=== PATIENT | female | born 1980 | race Caucasian/White ===

== ENCOUNTER → 2016-10-03 | Outpatient (CLI) | payer OTHER ==
[2016-10-03 12:30] LABS: Glucose 3 Hour, Gest 110 mg/dL
== END | disposition home or self-care (01) ==
LOC: LABWHC1 07:37
PROVIDERS: ATTEND Obstetrics & Gynecology
DX: O24.419 Gestational diabetes mellitus in pregnancy, unspecified control (principal); Z3A.00 Weeks of gestation of pregnancy not specified
CPT/HCPCS: 36415; 82951; 82952

== ENCOUNTER 2016-10-26 14:51 | Inpatient (IN) | payer OTHER ==
[2016-10-26 16:18] LABS: CHCM 33.8; HGB 11.9 gm/dL (11.4-16.0)
[2016-10-26 16:28] LABS: ALT 34 U/L (9-52); AST 18 U/L (14-36); Blood Urea Nitrogen 7 mg/dL (7-17); Non-African American GFR(MDRD) >60 (>60 ml/min/1.73 sqM); Uric Acid 3.5 mg/dL (3.7-7.4)
[2016-10-26 16:41] LABS: Basophils % (A) 0 %; CH 29.9; Eosinophils # (A) 0.1 k/uL (0-0.7); Eosinophils % (A) 1 %; HCT 35.8 % (34.0-46.0); HDW 3.31; Luc % (Auto) 4; Lymphocytes # (A) 1.7 k/uL (1.0-4.8); Lymphocytes % (A) 23 %; MCH 29.7 pg (25.0-35.0); MCHC 33.2 g/dL (31.0-37.0); MCV 89.2 fL (80.0-100.0); Mean Platelet Volume 6.9; Monocytes # (A) 0.5 k/uL (0-1.0); Monocytes % (A) 7 %; Neutrophils # (A) 4.8 k/uL (1.3-7.7); Neutrophils % (A) 65 %; RBC 4.01 m/uL (3.80-5.40); RDW 14.1 % (11.5-15.5); WBC 7.4 k/uL (3.8-10.6); WBC (Perox) 7.59
[2016-10-26] MEDS: LACTATED RINGERS 1,000 ML IV SCH ×2 (16:54→18:13)
--- NOTE | 2016-10-26 16:57 | US ---
EXAMINATION TYPE: US OB limited DATE OF EXAM: 10/26/2016 4:43 PM COMPARISON: 05/03/2016 CLINICAL HISTORY: 35-year-old female with twin gestation at 31 weeks. Contractions. Check position an d cervix EXAM PERFORMED: Transabdominal (TA) FINDINGS: GESTATIONAL AGE / DATING Physician Established: (31 weeks/2 days) EDC: 12/26/2016 No growth performed on today?s study per ordering physician SURVEY CERVICAL LENGTH (transabdominal: norm > 3.0cm): 2.7 cm Transvaginal not performed per RN on L&D, and patient also did not want TV at this time PRESENTATION: Both Baby A and Baby B have Vertex presentation HEART RATE: Baby A- 151 bpm Baby B- 145 bpm RHYTHM: Normal TECHNOLOGIST NOTES: Viable Twin gestation both with Vertex presentation. Shortened cervix transabdo minally, with transvaginal exam not performed per RN and patient. Results given to L&D at time of exam. IMPRESSION: 1. Live twin gestations with established gestational age of 31 weeks 2 days. Cephalic presentation fo r both. 2. Slightly shortened cervix at 2.7 cm by transabdominal scanning.
[2016-10-26] MEDS ORDERED: BETAMET ACET-BETAMETH SOD PHOS 6 MG/ML VIAL IM SCH (18:00)
[2016-10-26] MEDS ORDERED: MAGNESIUM SULFATE-WATER PMX 4 GM in WATER FOR INJECTION 50 50ML.BAG IVPB ONE (18:34)
[2016-10-26] MEDS: MAGNESIUM SULFATE-WATER PMX 20 GM in WATER FOR INJECTION 1 500ML.BAG IV SCH (19:49)
[2016-10-26 20:28] VITALS: BMI 31.8
--- NOTE | 2016-10-26 21:45 | P.HPOB ---
History of Present Illness H&P Date: 10/26/16 Chief Complaint: Intrauterine with twins: labor This 35-year-old female G3 for P3 arrived to labor and delivery complaining of worsening pain and pressure. She has had several episodes of labor this and approximately 4 weeks ago was transferred to a high-risk center for evaluation due to cervical dilation. At that time she was monitored placed on magnesium sulfate and they were able to stop the contractions. She did receive 2 doses of betamethasone at that time to help with the baby's lung maturity's in the event that she did deliver early. Apparently 2 weeks ago she was dilated to 2 cm she was checked, then on Thursday Dr. Castro did an exam and she was dilated to 4 cm. At that time she was sent to labor and delivery for monitoring, no contractions were noted during her time in labor and delivery and therefore she was discharged home. She arrives back today complaining of contractions and worsening discomfort. Initially we did do a fibronectin was negative. On presentation she was still dilated to 4 cm and 60% effaced and -3 station. After 2 hours of monitoring I did recheck her and she was dilated to 4-1/2 cm and 70% effaced and -3 station. The main question regarding her care was based around where her delivery would take place. Initially she was supposed to be transferred to [facility] should she be stable for transfer. However with her michelle every 2-4 minutes and making cervical change I do not feel she is stable for transfer and will need to be admitted here. Discussion was held with the patient on options including trial of mag sulfate and dose of steroids to try and buy at least a little more time potentially for her second round of steroids to be and possibly transfer her should we be able to get the contractions. Area In discussing with she and her the decision had been made by the other doctors including Dr. Castro and Cleopatra that even if both babies were vertex she would have a primary section for the twins. This was all discussed with her in detail she is aware that I do not feel she is stable for transfer she is also aware that should she deliver the babies will be transferred to higher acuity center where they can be better taken care of. Questions are ANSWERED for she and her . In reviewing her records it is noted that she has a history of preeclampsia with prior as well. She is been coordinating care with Dr. Rodríguez at [facility] and has been followed very closely. Her pertinent labs did include O+ blood type, Rh antibody was negative. Rubella was immune, hepatitis B surface antigen and RPR were both negative. She did fail her 1 hour but did pass her 3 hour Glucola screen. 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 Patient states that she had a head contusion and 2 bulging disk in her neck diagnosised March 01, 2016. History of panic attacks History of Any Multi-Drug Resistant Organisms: None Reported Past Surgical History: No Surgical Hx Reported Additional Past Surgical History / Comment(s): [place] teeth removed in 2002 Past Anesthesia/Blood Transfusion Reactions: No Reported Reaction Additional Past Anesthesia/Blood Transfusion Reaction / Comment(s): "Hard to wake up" Past Psychological History: Anxiety Smoking Status: Former smoker Past Alcohol Use History: None Reported Past Drug Use History: Marijuana Additional Drug Use History / Comment(s): Patient states that she quit smoking Marijuana in February. - Past Family History Mother Family Medical History: Hypertension Additional Family Medical History / Comment(s): Cervical and Ovarian Cancer, Alcoholism Father Additional Family Medical History / Comment(s): Alcoholism Daughter(s) Additional Family Medical History / Comment(s): Patient has three daughter, Patient states her seven year old is allergic to dairy products. Medications and Allergies Home Medications Medication Instructions Recorded Confirmed Type Albuterol Inhaler [Ventolin Hfa 1 - 2 puff INHALATION RT-Q6H PRN 05/02/16 History Inhaler] Beclomethasone Dipropionate [Qvar 1 puff INHALATION RT-BID PRN 05/02/16 History 80 mcg] Flunisolide [Aerospan] 1 puff PO BID 10/26/16 10/26/16 History Allergies Allergy/AdvReac Type Severity Reaction Status Date / Time Penicillins Allergy Anaphylaxis Verified 10/26/16 15:07 Exam Osteopathic Statement: *. No significant issues noted on an osteopathic structural exam other than those noted in the History and Physical/Consult. - Vital Signs Vital signs: Intake and Output 10/26/16 10/26/16 10/26/16 06:59 14:59 22:59 Intake Total 150 Output Total 425 Balance -275 Intake: IV 150 Magnesium Sulfate-Water 150 Pmx 4 gm In Water For Injection 50 50ml.bag @ 150 mls/hr IVPB ONCE ONE Rx#:[id number] Output: Urine 425 Other: Weight 81.647 kg Patient Weight 10/27/16 06:59 Weight 81.647 kg - OBG Physical Exam Breast: both: normal (no masses) Abdomen: bowel sounds normal, no diffuse tenderness, no bruit present, no guarding noted, no hepatomegaly, no splenomegaly, no mass Vulva: both: normal Vagina: normal moisture, no discharge Cervix: no lesion, no discharge Uterus: normal size, normal contour Adnexa: both: normal Anus/Rectum: normal perianal skin, no rectal mass, no hemorrhoids, heme negative Results Result Diagrams: 10/26/16 16:02 10/26/16 16:02 Abnormal Lab Results - Last 24 Hours (Table) 10/26/16 Range/Units 16:02 Creatinine 0.49 L (0.52-1.04) mg/dL Uric Acid 3.5 L (3.7-7.4) mg/dL
[2016-10-26] MEDS: BUTORPHANOL 1 MG/ML 1 ML VIAL IV PRN (22:27)
[2016-10-27] MEDS ORDERED: BUTORPHANOL 1 MG/ML 1 ML VIAL IV PRN (00:38)
[2016-10-27 01:22] LABS: Basophils % (A) 0 %; CH 30.2; CHCM 33.8; Eosinophils % (A) 0 %; HDW 3.26; HGB 12.2 gm/dL (11.4-16.0); Luc % (Auto) 1; Lymphocytes % (A) 10 %; MCH 28.9 pg (25.0-35.0); MCHC 32.1 g/dL (31.0-37.0); Mean Platelet Volume 8.4; Monocytes # (A) 0.2 k/uL (0-1.0); Monocytes % (A) 2 %; Neutrophils # (A) 8.8 k/uL (1.3-7.7); Neutrophils % (A) 86 %; RBC 4.22 m/uL (3.80-5.40); RDW 14.2 % (11.5-15.5); WBC 10.1 k/uL (3.8-10.6); WBC (Perox) 10.61
[2016-10-27 01:30] LABS: ALT 28 U/L (9-52); AST 24 U/L (14-36); Alkaline Phosphatase 141 U/L (38-126); Anion Gap 10 mmol/L; Blood Urea Nitrogen 8 mg/dL (7-17); Calcium 7.6 mg/dL (8.4-10.2); Carbon Dioxide 19 mmol/L (22-30); Chloride 107 mmol/L (98-107); Glucose 129 mg/dL (74-99); Non-African American GFR(MDRD) >60 (>60 ml/min/1.73 sqM); Phosphorous 4.3 mg/dL (2.5-4.5); Potassium 4.6 mmol/L (3.5-5.1); Sodium 136 mmol/L (137-145); Total Protein 6.5 g/dL (6.3-8.2)
[2016-10-27] MEDS: LACTATED RINGERS 1,000 ML IV SCH (02:09)
[2016-10-27] MEDS: BUTORPHANOL 1 MG/ML 1 ML VIAL IV PRN (04:05)
[2016-10-27] MEDS: MAGNESIUM SULFATE-WATER PMX 20 GM in WATER FOR INJECTION 1 500ML.BAG IV SCH (05:54)
[2016-10-27 07:23] LABS: Calcium 7.1 mg/dL (8.4-10.2); Phosphorous 4.5 mg/dL (2.5-4.5); Potassium 4.8 mmol/L (3.5-5.1)
[2016-10-27 07:39] LABS: Magnesium 4.7 mg/dL (1.6-2.3)
--- NOTE | 2016-10-27 09:18 | P.PN ---
Progress Note - Text The patient was seen and examined this morning. She states her contractions have decreased considerably from yesterday. She still has an occasional contraction and not regular. She admits to good movement. She was admitted and placed on magnesium sulfate toco lysis along with several doses of Stadol through the night to help with pain control. Her contractions were initially every 2-4 minutes but now are approximately every 10 minutes. She was initially found to be 4 cm on arrival and currently is 5 cm 60% and -2 to - 3 station and ballotable. The water is intact. heart tones on both babies are reactive. Impression is twin gestation with mono-di twins at 31-2/7 weeks. Plan is to arrange for transfer to [facility] in [place] in the care of maternal medicine where she has been following throughout this . I did speak to a physician at [facility] and they have accepted transfer in the care of Dr. Bingham. She will be transferred by EMS on magnesium sulfate at 2 g per hour. All records will be sent with her. A bedside ultrasound was performed on admission and she was found to be vertex/ vertex.
--- NOTE | 2016-10-27 09:23 | P.DS ---
Providers Date of admission: 10/26/16 18:48 Expected date of discharge: 10/27/16 Attending physician: Sejal Venegas Primary care physician: Stated None - Discharge Diagnosis(es) (1) labor in third trimester without delivery Current Visit: Yes Status: Acute Hospital Course: This is a 35-year-old female 4 para 3 at 31-2/7 weeks gestation with twins. She was admitted with contractions on 10/26/2016. She was given Celestone and magnesium sulfate. She also received several doses of Stadol through the night. Her contractions have spaced out this morning and are irregular. Her cervix initially was 4 cm on admission and did make some cervical change to 5 cm, however her cervix has been stable for the last 4 hours. She has been followed by maternal- medicine at [facility] with multiple ultrasounds and she was admitted for steroids at approximate 28 weeks. At that time she did have magnesium sulfate tocolysis and Indocin. A bedside ultrasound was performed on admission that showed both babies are vertex presentation. She is currently being transferred to [facility] in [place] under the care of Dr. Bingham. She will be transferred on magnesium sulfate at 2 g per hour. Procedures: Magnesium sulfate tocolysis Patient Condition at Discharge: Fair Plan - Discharge Summary Discharge Medication List Albuterol Inhaler [Ventolin Hfa Inhaler] 1 - 2 puff INHALATION RT-Q6H PRN [History] Beclomethasone Dipropionate [Qvar 80 mcg] 1 puff INHALATION RT-BID PRN 05/02/16 [History] [id number] Acid [-U Capsule] 1 each PO DAILY@1200 cap [Rx] SILVER sulfADIAZINE CREAM [Silvadene Cream] 1 applic TOPICAL BID applic [Rx] Flunisolide [Aerospan] 1 puff PO BID 10/26/16 [History] Activity/Diet/Wound Care/Special Instructions: Bedrest Discharge Disposition: DC/TRNS INTERMEDIATE CARE FAC
== END 2016-10-27 10:15 | disposition short-term general hospital (02) | DRG 778 ==
LOC: FBPOP 14:51 → 4FBP 18:48
PROVIDERS: ADMIT Obstetrics & Gynecology; ATTEND Obstetrics & Gynecology
DX: O60.03 Preterm labor without delivery, third trimester (principal); O26.893 Other specified pregnancy related conditions, third trimester; O30.033 Twin pregnancy, monochorionic/diamniotic, third trimester; O99.343 Other mental disorders complicating pregnancy, third trimester; O99.513 Diseases of the respiratory system complicating pregnancy, third trimester; J45.909 Unspecified asthma, uncomplicated; M47.812 Spondylosis without myelopathy or radiculopathy, cervical region; O09.212 Supervision of pregnancy with history of pre-term labor, second trimester; F41.0 Panic disorder [episodic paroxysmal anxiety]; F41.9 Anxiety disorder, unspecified; Z88.0 Allergy status to penicillin; Z3A.37 37 weeks gestation of pregnancy; Z87.891 Personal history of nicotine dependence; Z82.49 Family history of ischemic heart disease and other diseases of the circulatory system; Z80.41 Family history of malignant neoplasm of ovary; Z81.1 Family history of alcohol abuse and dependence; Z80.49 Family history of malignant neoplasm of other genital organs; Z87.828 Personal history of other (healed) physical injury and trauma
CPT/HCPCS: 59025; 76815; 80051; 80053; 82040; 82310; 82565; 82731; 83735; 84100; 84450; 84460; 84520; 84550; 85025; 96360; 96361; 96372; 99213; 99214